=== PATIENT | male | born 1930 | race Caucasian/White ===

== ENCOUNTER 2016-07-28 13:49 | Emergency (ER) | payer MEDICARE, OTHER ==
[2016-07-28] MEDS ORDERED: ACETAMINOPHEN 325 MG TABLET PO ONE (14:05)
--- NOTE | 2016-07-28 14:55 | ER Document Report ---
ED General - General Chief Complaint: Fall Injury Stated Complaint: WEAKNESS Mode of Arrival: Medic Information source: Patient Notes: This is an 86-year-old male who presents to the ER with left wrist pain after sustaining a fall 2 or 3 days ago. He states that he became dizzy and lost his balance and fell injuring his left wrist. He states that initially his wrist didn't bother him but the next day he developed pain and swelling. He thinks he hit his head but does not think he lost consciousness. He denies headache or vomiting. He does state that he has difficulty sleeping for the past few days. He denies chest pain or shortness of breath. No fevers chills or systemic symptoms. No recent illnesses. No dysuria. No cough or congestion. TRAVEL OUTSIDE OF THE [place] IN LAST 30 DAYS: No Past Medical History - General Information source: Patient - Social History Smoking Status: Former Smoker Chew tobacco use (# tins/day): No Family History: Reviewed & Not Pertinent - Past Medical History Cardiac Medical History: Reports: Hx Atrial Fibrillation, Hx Hypertension Past Surgical History: Reports: Hx Adenoidectomy, Hx Tonsillectomy Review of Systems - Review of Systems Notes: REVIEW OF SYSTEMS: CONSTITUTIONAL : Denies fever, chills, or sweats. Denies recent illness. EENT: Denies eye, ear, throat, or mouth pain or symptoms. Denies nasal or sinus congestion. CARDIOVASCULAR: Denies chest pain. RESPIRATORY: Denies cough, cold, or chest congestion. Denies shortness of breath, difficulty breathing, or wheezing. GASTROINTESTINAL: Denies abdominal pain. Denies nausea, vomiting, or diarrhea. Denies constipation. Last BM: today, normal GENITOURINARY: Denies difficulty urinating, painful urination, burning. Does report increased urinary frequency at nighttime MUSCULOSKELETAL: Denies neck or back pain or joint pain or swelling. L wrist pain as per HPI SKIN: Denies rash or skin lesions. HEMATOLOGIC : Denies easy bruising or bleeding. LYMPHATIC: Denies swollen, enlarged glands. NEUROLOGICAL: Denies headache. Fall and possible syncope as per HPI PSYCHIATRIC: Denies anxiety or stress or depression. ALL OTHER SYSTEMS REVIEWED AND NEGATIVE. Physical Exam - Vital signs Vitals: Temp Pulse Resp BP Pulse Ox 99.0 F 92 16 130/76 H 97 07/28/16 14:14 07/28/16 14:14 07/28/16 14:14 07/28/16 14:14 07/28/16 14:14 - Notes Notes: PHYSICAL EXAMINATION: GENERAL: Well-appearing, well-nourished and in no acute distress. Very pleasant and conversant elderly gentleman. HEAD: Atraumatic, normocephalic. EYES: Pupils equal round and reactive to light, extraocular movements intact, sclera anicteric, conjunctiva are normal. ENT: nares patent, oropharynx clear without exudates. Moist mucous membranes. NECK: Normal range of motion, supple without lymphadenopathy LUNGS: Breath sounds clear to auscultation bilaterally and equal. No wheezes rales or rhonchi. HEART: tachycardic, irregularly irregular rhythm, no murmur appreciated ABDOMEN: Soft, nontender, normoactive bowel sounds. No guarding, no rebound. No masses appreciated. EXTREMITIES: Normal range of motion, no pitting or edema. No cyanosis. L wrist: mild dorsal edema to radial aspect of wrist, with TTP and decreased ROM secondary to pain. DNVI. Sensation intact. Cap refill less than3 seconds NEUROLOGICAL: Cranial nerves grossly intact. Normal speech, normal gait. Normal sensory, motor, and reflex exams. PSYCH: Normal mood, normal affect. SKIN: Warm, Dry, normal turgor, no rashes or lesions noted. Course - Vital Signs Vital signs: Temp Pulse Resp BP Pulse Ox 99.0 F 92 19 121/71 90 L 07/28/16 14:14 07/28/16 14:14 07/28/16 17:30 07/28/16 17:30 07/28/16 17:30 07/28/16 14:55 - Laboratory Result Diagrams: 07/28/16 15:32 07/28/16 15:32 Laboratory results interpreted by me: 07/28/16 07/28/16 07/28/16 15:32 15:32 15:32 WBC 13.2 H RBC 3.94 L Hgb 12.6 L Hct 37.8 L Seg Neutrophils % 82.3 H Lymphocytes % 8.1 L Absolute Neutrophils 10.9 H ESR 79 H PT 17.7 H BUN 24 H Est GFR (Non-Af Amer) 59 L C-Reactive Protein 79.5 H Urine Protein Urine Blood Urine Urobilinogen 07/28/16 16:09 WBC RBC Hgb Hct Seg Neutrophils % Lymphocytes % Absolute Neutrophils ESR PT BUN Est GFR (Non-Af Amer) C-Reactive Protein Urine Protein 100 H Urine Blood SMALL H Urine Urobilinogen 2.0 H Discharge - Discharge Clinical Impression: Wrist arthritis, Subtherapeutic anticoagulation Atrial fibrillation Qualifiers: Atrial fibrillation type: chronic Qualified Code(s): I48.2 - Chronic atrial fibrillation UTI (urinary tract infection) Qualifiers: Urinary tract infection type: site unspecified Hematuria presence: without hematuria Qualified Code(s): N39.0 - Urinary tract infection, site not specified Condition: Stable Disposition: HOME, SELF-CARE Instructions: Cephalexin ([facility]), Urinary Tract Infection ([facility]) Additional Instructions: Arthritis Your symptoms are due to arthritis. Arthritis is an inflammation of the joints. There are many types -- osteoarthritis (due to "wear and tear"), auto- immmune arthritis (such as rheumatoid, lupus, Hailee's, and others), and crystal -induced arthritis (such as gout and pseudogout). The physician's examination, combined with laboratory tests, will determine the cause of your arthritis. All types of arthritis are treated with antiinflammatory medications. Other medication may be required for special types of arthritis, or if your problem does not respond to the antiinflammatory medicine. Local warmth may be helpful. Move the involved joints through the full range of motion daily. Mild exercise is usually still possible for most persons with arthritis (ask your physician). Swimming provides good exercise without damaging the joints. Contact the physician if you are worsening in any way. URINARY TRACT INFECTION: Your evaluation indicates that you have a urinary tract infection. This is due to germs growing in the bladder. This is a common problem. This infection usually responds quickly to antibiotics. Your antibiotic should be taken exactly as prescribed. Drink plenty of fluids -- three to four quarts a day. Occasionally, a bladder anesthetic will be prescribed to help stop the feeling of urgency until the antibiotic has a chance to clear the infection. This may cause your urine to be dark orange. Certain urine infections require a culture. If the doctor obtained a culture, the results will be back in two days. You should call to see if a change in treatment is needed. A repeat urinalysis after you finish treatment is often recommended. The physician will let you know if further testing is required. Call the doctor if you develop fever, chills, flank pain, inability to urinate, or blood in the urine. ANTIBIOTIC THERAPY: You have been given an antibiotic prescription. It's important that you take all the medication, unless instructed otherwise by your physician. Failure to complete the entire course can result in relapse of your condition. Common side effects of antibiotics include nausea, intestinal cramping, or diarrhea. Women may develop vaginal yeast infections, and babies can get yeast (thrush) in the mouth following the use of antibiotics. Contact your physician if you develop significant side effects from this medication. Allergy to this antibiotic can result in hives, wheezing, faintness, or itching. If symptoms of allergy occur, stop the medication and call the doctor. L CEPHALEXIN: The antibiotic you've been prescribed is a member of the cephalosporin class. This type of antibiotic covers a wide variety of infections, including those of the skin, lungs, and urinary tract. It's useful for staph infections. This antibiotic is slightly similar to the penicillin family. In rare cases , a person who is allergic to penicillin will also be allergic to this medication. If you have had a severe allergic reaction to penicillin, and have not taken this antibiotic since that time, notify your doctor. Antibiotics which cover many germs ("broad spectrum" antibiotics) are more likely to cause diarrhea or "yeast" infections. Women prone to vaginal yeast problems may suffer an attack after taking this antibiotic. In infants, oral thrush (white spots "stuck" on the cheek) or yeast diaper rash may result. See your doctor if these problems occur. Call at once if you develop itching, hives , shortness of breath, or lightheadedness. FOLLOW-UP CARE: If you have been referred to a physician for follow-up care, call the physician s office for an appointment as you were instructed or within the next two days. If you experience worsening or a significant change in your symptoms, notify the physician immediately or return to the Emergency Department at any time for re-evaluation As discussed please take your home medications including your Warfarin as prescribed. Follow up with Dr Santos tomorrow at 0800 as discussed. Return to the ER for fevers, or any worsening symptoms or concerns.. Prescriptions: Cephalexin Monohydrate [Keflex 500 mg Capsule] 500 mg PO QID #20 capsule Ibuprofen [Motrin 400 mg Tablet] 400 mg PO BID #14 tablet Referrals: TERRI LIRIANO, [Primary Care Provider] - Follow up tomorrow
[2016-07-28] MEDS ORDERED: DILTIAZEM HCL INJ 25 MG/5 ML VIAL IV ONE (15:53)
[2016-07-28 16:02] LABS: ABSOLUTE LYMPHOCYTES (AUTO) 1.1 10^3/uL (0.5-4.7); ABSOLUTE MONOCYTES (AUTO) 1.2 10^3/uL (0.1-1.4); ABSOLUTE NEUT (AUTO) 10.9 10^3/uL (1.7-8.2); BASOPHILS % (AUTO) 0.2 % (0-2); HEMATOCRIT 37.8 % (37.9-51.0); HEMOGLOBIN 12.6 g/dL (13.5-17.0); LYMPHOCYTES % (AUTO) 8.1 % (13-45); MEAN CORPUSCULAR HEMOGLOBIN 31.9 pg (27.0-33.4); MEAN CORPUSCULAR HGB CONC 33.2 g/dL (32.0-36.0); MEAN CORPUSCULAR VOLUME 96 fl (80-97); MONOCYTES % (AUTO) 9.4 % (3-13); RED BLOOD COUNT 3.94 10^6/uL (4.35-5.55); SEGMENTED NEUTROPHILS % (AUTO) 82.3 % (42-78); WHITE BLOOD COUNT 13.2 10^3/uL (4.0-10.5)
[2016-07-28 16:12] LABS: PROTHROMBIN TIME 17.7 SEC (11.4-15.4)
[2016-07-28 16:13] LABS: PARTIAL THROMBOPLASTIN TIME 35.5 SEC (23.5-35.8)
[2016-07-28 16:24] LABS: ALANINE AMINOTRANSFERASE 23 U/L (21-72); ALBUMIN 3.9 g/dL (3.5-5.0); ALKALINE PHOSPHATASE 107 U/L (38-126); ANION GAP 13 (5-19); ASPARTATE AMINO TRANSFERASE 24 U/L (17-59); BILIRUBIN,DIRECT 0.2 mg/dL (0.0-0.4); BILIRUBIN,TOTAL 1.3 mg/dL (0.2-1.3); BLOOD UREA NITROGEN 24 mg/dL (7-20); C-REACTIVE PROTEIN 79.5 mg/L (<10.0); CALCIUM 9.6 mg/dL (8.4-10.2); CARBON DIOXIDE 25 mmol/L (22-30); CHLORIDE 101 mmol/L (98-107); CREATINE KINASE 67 U/L (55-170); CREATININE RESULT 1.18 mg/dL (0.52-1.25); GLUCOSE 104 mg/dL (75-110); POTASSIUM 4.5 mmol/L (3.6-5.0); SODIUM 138.9 mmol/L (137-145); TOTAL PROTEIN 7.1 g/dL (6.3-8.2)
[2016-07-28 16:34] LABS: CREATINE KINASE MB 0.95 ng/mL (<4.55)
[2016-07-28 16:37] LABS: TROPONIN I < 0.012 ng/mL
[2016-07-28 16:39] LABS: ERYTHROCYTE SEDIMENTATION RATE 79 mm/hr (0-20)
[2016-07-28 16:43] LABS: APPEARANCE,URINE CLOUDY; BILIRUBIN,URINE NEGATIVE (NEGATIVE); GLUCOSE, URINE NEGATIVE (NEGATIVE); KETONES,URINE NEGATIVE (NEGATIVE); LEUKOCYTE ESTERASE,URINE NEGATIVE (NEGATIVE); NITRITE,URINE NEGATIVE (NEGATIVE); PROTEIN,URINE 100 mg/dL (NEGATIVE); URINE SPECIFIC GRAVITY 1.029
[2016-07-28] MEDS ORDERED: CEFTRIAXONE 1 GM/D5W RTU 50 ML IV ONE (17:17)
[2016-07-28] MEDS ORDERED: ENOXAPARIN SODIUM INJ 60 MG/0.6 ML DISP.SYRIN SUBCUT SCH (17:30)
[2016-07-28 17:36] VITALS: BP 121/71
--- NOTE | 2016-07-28 19:10 | EKG REPORT ---
SEVERITY:- ABNORMAL ECG - ATRIAL FIBRILLATION, V-RATE 91-170 LVH WITH SECONDARY REPOLARIZATION ABNORMALITY ANTERIOR Q WAVES, POSSIBLY DUE TO LVH : Confirmed by: Sulma Toussaint MD 28-Jul-2016 19:10:20
== END 2016-07-28 17:53 | disposition home or self-care (01) ==
LOC: ER 13:49
DX: M19.032 Primary osteoarthritis, left wrist (principal); S69.92XA Unspecified injury of left wrist, hand and finger(s), initial encounter; W19.XXXA Unspecified fall, initial encounter; I48.2 Chronic atrial fibrillation; R79.1 Abnormal coagulation profile; N39.0 Urinary tract infection, site not specified; M25.532 Pain in left wrist; I10 Essential (primary) hypertension; R00.0 Tachycardia, unspecified; Z87.891 Personal history of nicotine dependence
CPT/HCPCS: 93005; 99285; 96375; 96365; 36415; 82553; 82550; 85025; 85652; 85610; 85730; 86140; 80053; 81001; 84484; 71010; 73110; 70450; 93010; A9270; J3490; J0696

== ENCOUNTER 2016-11-20 11:24 | Emergency (ER) | payer MEDICARE, OTHER ==
[2016-11-20] MEDS ORDERED: IBUPROFEN 600 MG TABLET PO ONE (11:59)
--- NOTE | 2016-11-20 12:05 | ER Document Report ---
ED Fall - General Chief Complaint: Fall Stated Complaint: BACK/RIB PAIN Time Seen by Provider: 11/20/16 11:47 Mode of Arrival: Stretcher Information source: Patient TRAVEL OUTSIDE OF THE [place] IN LAST 30 DAYS: No - HPI Patient complains to provider of: Slip and fall, left rib pain Occurred: Yesterday Where: Home Context: Slipped Associated symptoms: None Location of injury/pain: Back, Chest Quality of pain: Achy Severity: Moderate Pain Level: 3 Notes: Patient is an 86-year-old male who presents to the emergency room via EMS for complaints of slip and fall resulting in low back and left lower rib pain, symptoms started yesterday, although he has been having some low back pain for the past few weeks, was recently seen by his primary care provider last week, given a prescription for a topical analgesic cream which worked for approximately 1 night and he has been having worsening symptoms since, he denies any nausea, vomiting or diarrhea, no dysuria or hematuria, no shortness of breath, no chest pain, he reports an occasional nonproductive cough, patient does have ecchymosis to his left chin, and right parietal scalp, however he denies any loss of consciousness from the fall Past Medical History - General Information source: Patient - Social History Smoking Status: Former Smoker Family History: Reviewed & Not Pertinent - Past Medical History Cardiac Medical History: Reports: Hx Atrial Fibrillation, Hx Hypertension Past Surgical History: Reports: Hx Adenoidectomy, Hx Tonsillectomy Review of Systems - Review of Systems Constitutional: No symptoms reported EENT: No symptoms reported Cardiovascular: No symptoms reported Respiratory: No symptoms reported Gastrointestinal: No symptoms reported Genitourinary: No symptoms reported Male Genitourinary: No symptoms reported Musculoskeletal: See HPI Skin: No symptoms reported Hematologic/Lymphatic: No symptoms reported Neurological/Psychological: No symptoms reported -: Yes All other systems reviewed and negative Physical Exam - Vital signs Vitals: Pulse BP Pulse Ox 90 128/74 H 98 11/20/16 11:34 11/20/16 11:34 11/20/16 11:34 Interpretation: Normal - General General appearance: Appears well, Alert - HEENT Head: Normocephalic, Ecchymosis - Small ecchymosis to left [place], and right parietal scalp Eyes: Normal Conjunctiva: Normal Eyelashes: Normal Pupils: PERRL Pharynx: Normal Neck: Normal - Respiratory Respiratory status: No respiratory distress Chest status: Nontender Breath sounds: Normal Chest palpation: Normal - Cardiovascular Rhythm: Regular Heart sounds: Normal auscultation Murmur: No - Abdominal Inspection: Normal Distension: No distension Bowel sounds: Normal Tenderness: Nontender Organomegaly: No organomegaly - Back Back: Tender - Tenderness to palpate in left lower posterior ribs and lower thoracic paraspinal musculature, no ecchymosis, erythema or swelling - Extremities General upper extremity: Normal inspection, Nontender, Normal color, Normal ROM , Normal temperature General lower extremity: Normal inspection, Nontender, Normal color, Normal ROM , Normal temperature, Normal weight bearing. No: Charles's sign - Neurological Neuro grossly intact: Yes Cognition: Normal Orientation: AAOx4 Cl[place] Coma Scale Eye Opening: Spontaneous [place] Coma Scale Verbal: Oriented [place] Coma Scale Motor: Obeys Commands Sylvie Coma Scale Total: 15 Speech: Normal Motor strength normal: LUE, RUE, LLE, RLE Sensory: Normal - Psychological Associated symptoms: Normal affect, Normal mood - Skin Skin Temperature: Warm Skin Moisture: Dry Skin Color: Normal Course - Re-evaluation Re-evalutation: 11/20/16 13:11 Imaging findings were discussed with patient and brother at bedside which are unremarkable except for old compression fractures, he does report minimal relief from the Motrin that was provided but is reluctant to take anything stronger at this point in time, he has an appointment with pain management in 2 weeks, patient was advised to apply cold packs, perform gentle stretching exercises and massage, follow-up with his primary care provider and pain management or return if symptoms worsen, patient and brother acknowledge understanding and agreement with this plan - Vital Signs Vital signs: Temp Pulse Resp BP Pulse Ox 90 128/74 H 98 11/20/16 11:34 11/20/16 11:34 11/20/16 11:34 Discharge - Discharge Clinical Impression: Strain of thoracic paraspinal muscles excluding T1 and T2 levels Qualifiers: Encounter type: initial encounter Qualified Code(s): S29.012A - Strain of muscle and tendon of back wall of thorax, initial encounter Condition: Stable Disposition: HOME, SELF-CARE Instructions: Muscle Strain ([facility]) Additional Instructions: Follow up with your primary care provider in one to 2 days. Return to the emergency room immediately if symptoms worsen or any additional concerns. Prescriptions: Ibuprofen [Motrin 600 Mg Tablet] 600 mg PO TID #30 tablet
--- NOTE | 2016-11-20 12:50 | RADIOLOGY REPORT (SQ) ---
EXAM DESCRIPTION: RIBS LEFT W/PA CHEST COMPLETED DATE/TIME: 11/20/2016 12:35 pm REASON FOR STUDY: fall COMPARISON: 07/28/2016 TECHNIQUE: Frontal view of the chest and additional views of the left ribs acquired. NUMBER OF VIEWS: Five view. LIMITATIONS: None. FINDINGS: FRONTAL CXR: No pneumothorax or contusion. Fibrosis in the upper lobes. RIBS: No displaced rib fractures. No lytic or blastic bony lesions. OTHER: No other significant finding. IMPRESSION: NO PNEUMOTHORAX. NO DISPLACED RIB FRACTURES. COMMENT: SITE OF TRAUMA/COMPLAINT MARKED/STAMP COMPLETED: YES. TECHNICAL DOCUMENTATION: JOB ID: [id number] [employer]- All Rights Reserved
--- NOTE | 2016-11-20 12:52 | RADIOLOGY REPORT (SQ) ---
EXAM DESCRIPTION: T SPINE AP/LAT COMPLETED DATE/TIME: 11/20/2016 12:35 pm REASON FOR STUDY: fall COMPARISON: 03/14/2015 NUMBER OF VIEWS: Two views. TECHNIQUE: AP and lateral radiographic images acquired of the thoracic spine. LIMITATIONS: None. FINDINGS: Bones are osteopenic. Several compression fractures which are unchanged from 2014. No ob vious acute compression fracture. IMPRESSION: No acute findings. TECHNICAL DOCUMENTATION: JOB ID: [id number] [employer]- All Rights Reserved
[2016-11-20 13:30] VITALS: BP 143/79
== END 2016-11-20 13:25 | disposition home or self-care (01) ==
LOC: ER 11:24
DX: S29.012A Strain of muscle and tendon of back wall of thorax, initial encounter (principal); W01.0XXA Fall on same level from slipping, tripping and stumbling without subsequent striking against object, initial encounter; Z87.891 Personal history of nicotine dependence
CPT/HCPCS: 99283; 71101; 72070; A9270

== ENCOUNTER → 2016-12-04 | Outpatient (CLI) | payer MEDICARE, OTHER ==
--- NOTE | 2016-12-04 16:18 | RADIOLOGY REPORT (SQ) ---
EXAM DESCRIPTION: MRI LUMBAR SPINE WITHOUT COMPLETED DATE/TIME: 12/04/2016 12:44 pm REASON FOR STUDY: WEDGE COMPRESSION FX LUMBAR VERTEBRA (S32.000A), LOW BACK PAIN (M54.5) M54.5 LOW BACK PAIN M54.6 PAIN IN THORACIC SPINE COMPARISON: CT abdomen pelvis 09/23/2013 TECHNIQUE: Sagittal and Axial imaging includes T1, T2, STIR and gradient echo sequences. Coronal T2/ HASTE imaging. LIMITATIONS: None. FINDINGS: VISUALIZED UPPER ABDOMEN: Limited evaluation. No acute or suspicious findings suggested. SEGMENTATION: No transitional anatomy. The lowest well-developed disc space is labeled L5-S1. ALIGNMENT: Anatomic. VERTEBRAE: Chronic L1 and L3 vertebra plana deformities are present unchanged from 2014. There is re tropulsion of the posterosuperior corner of L1, causing at least 50% canal narrowing. This is simila r compared to 2013. BONE MARROW: Normal. No marrow replacement or reactive changes. DISC SIGNAL: High signal at the T12-L1, L2-3, L3-4, and L4-5 discs from calcification. POSTERIOR ELEMENTS: Generally intact. No pars defect evident. HARDWARE: None in the spine. CORD AND CONUS: Normal in size and signal intensity. Conus at the L1-2 level. SOFT TISSUES: No aortic aneurysm seen. No bulky retroperitoneal adenopathy or mass. No paraspinal mas s or fluid. T11-12: At the upper edge of the field of view. Mild posterior disc bulging and mild bilateral face t and ligament hypertrophy are present. No central stenosis. Mild bilateral foraminal narrowing. T12-L1: Retropulsion of the posterosuperior corner of L1 with about 50% diameter narrowing of the ce ntral canal. There is partial effacement of the CSF around the conus without abnormal intrinsic conu s signal or high-grade mass effect. High-grade right, mild left foraminal narrowing L1-L2: Broad diffuse posterior disc bulging and moderate bilateral facet and ligament hypertrophy are present. No central stenosis. Mild bilateral foraminal narrowing. L2-L3: Broad diffuse posterior disc bulge and bony spurring and very bulky bilateral facet and ligame nt hypertrophy causes mild to moderate central canal narrowing best shown on axial T2 image 15. Part ial effacement of the CSF around the lumbar nerve roots. Mild bilateral inferior foraminal narrowing is present. L3-L4: Mild central canal stenosis results from broad diffuse posterior disc bulge and moderate bilat eral facet and ligament hypertrophy. Mild bilateral inferior foraminal narrowing without exiting L3 nerve root impingement. L4-L5: Broad diffuse posterior disc bulging, moderate bilateral facet and ligament hypertrophy. Bord mickie central canal narrowing. Mild bilateral inferior foraminal narrowing without exiting L4 nerve root impingement. L5-S1: Broad diffuse posterior disc bulge and bony spurring and mild bilateral facet and ligament hyp ertrophy. Borderline central canal narrowing. Mild bilateral foraminal narrowing without definite e xiting L5 nerve root impingement. SACRUM: Visualized upper sacrum intact. OTHER: No other significant findings. IMPRESSION: Chronic vertebra plana deformities at L1 and L3, unchanged from CT abdomen pelvis in 201 4. Multilevel degenerative changes as above. TECHNICAL DOCUMENTATION: JOB ID: [id number] [employer]- All Rights Reserved
--- NOTE | 2016-12-04 16:23 | RADIOLOGY REPORT (SQ) ---
EXAM DESCRIPTION: MRI THORACIC SPINE WITHOUT COMPLETED DATE/TIME: 12/04/2016 12:44 pm REASON FOR STUDY: WEDGE COMPRESSION FX THORACIC VERTEBRA (S22.000A), PAIN IN T SP (M54.6) M54.5 LOW BACK PAIN M54.6 PAIN IN THORACIC SPINE COMPARISON: None. TECHNIQUE: Sagittal and Axial imaging includes T1, T2, STIR and gradient echo sequences. LIMITATIONS: Motion. FINDINGS: LOCALIZER: Compression fractures L1-L3 knee of uncertain chronicity. ALIGNMENT: Exaggerated kyphosis. VERTEBRAE: Compression fracture T7 approaching vertebra plana. Residual high T2 signal in the inferi or endplate contiguous with Schmorl's node formation. No significant retropulsion. Compression frac ture T10 with approximately 50% height loss. Heterogeneous increased T2 signal in the body and anter ior pedicles. No significant retropulsion. BONE MARROW: See above. HARDWARE: None in the spine. CORD: Normal in size and signal intensity. SOFT TISSUES: No soft tissue masses. THORACIC DISCS T1-T12: No significant spinal stenosis or exit foraminal stenosis. LOWER CERVICAL: Incompletely imaged. No significant spinal stenosis or exit foraminal stenosis. UPPER LUMBAR: Mild retropulsion L1. OTHER: No other significant finding. IMPRESSION: Recent compression fracture T10. TECHNICAL DOCUMENTATION: JOB ID: [id number] [employer]- All Rights Reserved
== END ==
LOC: RAD 10:36
PROVIDERS: ATTEND Physician Assistant
DX: M54.5 Low back pain (principal); M54.6 Pain in thoracic spine; S22.000A Wedge compression fracture of unspecified thoracic vertebra, initial encounter for closed fracture; M47.896 Other spondylosis, lumbar region
CPT/HCPCS: 72146; 72148